=== PATIENT | male | born 1970 ===

== ENCOUNTER 2017-11-13 11:47 | Emergency (ER) | payer OTHER ==
[2017-11-13 11:59] VITALS: RESP 16; TEMP 98
[2017-11-13] MEDS ORDERED: Tdap Vaccine 0.5 ml Vial (10-64 yrs) IM ONE (12:07)
[2017-11-13] MEDS ORDERED: Lidocaine 1% Inj (20ml) INFIL ONE (12:07)
[2017-11-13] MEDS ORDERED: Lidocaine Hydrochloride 5 ML INJ ONE (12:14)
[2017-11-13] MEDS ORDERED: Tetanus/Diphtheria Toxoids 0.5 ml Syringe IM ONE (12:14)
[2017-11-13] MEDS ORDERED: Bacitracin 500 Units/gm Oint Foilpak UD TOP ONE (12:17)
--- NOTE | 2017-11-13 12:17 | C.PDOC ---
History Of Present Illness 47 y/o male comes to ed s/p accident at work; pt was lifting a heavy metal pipe and accidentally hit himself in the face with it, causing a laceration to his right upper lip, right lower lip and abrasion to right thigh. pt fell down and landed on right hand, c/o pain to hypothenar and thenar eminences and to thumb and 5th finger of right hand. denies head injury, no loc, no neck pain. denies any loose teeth. tdap not utd. Time Seen by Provider: 11/13/17 12:01 Chief Complaint (Nursing): Abnormal Skin Integrity History Per: Patient History/Exam Limitations: no limitations Onset/Duration Of Symptoms: Hrs (1) Current Symptoms Are (Timing): Still Present Location Of Injury: Right: Face (lacerations), Hand (painful), Thigh (abrasion) Quality Of Symptoms: Painful Severity: Moderate Past Medical History Reviewed: Historical Data, Nursing Documentation, Vital Signs Vital Signs: Last Vital Signs Temp 98 F 11/13/17 11:56 Pulse 88 11/13/17 13:46 Resp 16 11/13/17 13:46 BP 154/94 H 11/13/17 13:46 Pulse Ox 99 11/15/17 11:02 - Medical History PMH: No Chronic Diseases Family History: States: Unknown Family Hx - Social History Hx Alcohol Use: No Hx Substance Use: No - Immunization History Hx Tetanus Toxoid Vaccination: No Hx Influenza Vaccination: No Hx Pneumococcal Vaccination: No Review Of Systems Constitutional: Negative for: Fever Eyes: Negative for: Pain, Vision Change ENT: Positive for: Mouth Pain (laceration to lips), Mouth Swelling Skin: Positive for: Other (lacerations and abrasion) Neurological: Negative for: Weakness, Numbness Physical Exam - Physical Exam Appears: Non-toxic, No Acute Distress, Other (uncomfortable) Skin: Warm, Dry, Other (2 cm deep vertical laceration to right side upper lip extending through raymond border, 1 cm irregular laceration to right lower lip. 5 cm shallow abrasion to right anterior mid thigh. ) Head: Normacephalic, Laceration (see skin) Eye(s): bilateral: Normal Inspection, PERRL, EOMI Nose: No Epistaxis, No Tenderness Oral Mucosa: Moist Tongue: Normal Appearing Lips: Laceration (right lower and right upper lip) Teeth: Normal Dentition, No Tender To Palpation, No Loose, No Avulsed Gingiva: Normal Appearing Neck: No Midline Cervical Tenderness Chest: No Deformity, No Tenderness Cardiovascular: Rhythm Regular Respiratory: No Decreased Breath Sounds Gastrointestinal/Abdominal: Bowel Sounds, Soft, No Tenderness Back: No Vertebral Tenderness Extremity: Normal ROM, Tenderness (right hand to thenar and hypothenar eminences and to thumb and pinky, skin intact, from all digits, wrist, elbow and shoulder. ) Extremity: Right: Bony Point Tenderness (thumb and 5th fingers) Pulses: Left Radial: Normal, Right Radial: Normal Neurological/Psych: Oriented x3, Normal Speech, Normal Cognition, Normal Motor, Normal Sensation ED Course And Treatment O2 Sat by Pulse Oximetry: 99 - Other Rad right hand X-Ray: Read By Radiologist Interpretation: Normal right hand radiographs. Laceration - Laceration Repair upper lip Wound Length (In cm): 2 Description Of Wound: Linear Wound Cleansed With: Sterile Saline Anesthesia: Lidocaine 1% Wound Examination: Irrigated With Saline Wound Closure: Suture (#7) Suture Technique And Material Used: Interrupted, Nylon (#6 ethilon) Wound Complexity: Simple Medical Decision Making Medical Decision Making: lower lip laceration right side 1 cm, 3 sutures with 5-0 absorbable gut. anesthetized with 1% lidocaine, irrigated ns. Disposition Counseled Patient/Family Regarding: Studies Performed, Diagnosis, Need For Followup, Rx Given - Disposition Referrals: [facility] [Outside] Disposition: HOME/ ROUTINE Disposition Time: 13:35 Condition: IMPROVED Additional Instructions: Por favor, aplique compresas fras (sobre chelly liviana) al labio superior por 10 min a la vez, varias veces al da para ayudar con la hinchazn. Riddle antibi ticos segn lo prescrito. Tylenol o Motrin para el dolor. Regrese a ER en 2 d as para un control de herida. Por favor, coma alimentos blandos y enjuguese la boca con agua tibia despus de comer para quitar las partculas de alimentos de las laceraciones. Regrese a ER para cualquier sntoma que empeore. Eliminacin de sutura en 7 sanchez. Please apply cold compress (over light cloth) to upper lip for 10 min at a time , several times a day to help with swelling. Take antibiotics as prescribed. Tylenol or Motrin for pain. Return to ER in 2 days for a wound check. Please eat soft foods and rinse mouth with warm water after eating to get any food particles away from lacerations. Return to ER for any worsening symptms. Suture removal in 7 days. Prescriptions: Cephalexin [cephalexin] 500 mg PO Q6 #28 cap Ibuprofen [Motrin] 600 mg PO TID #30 tab Instructions: Contusion (DC), Laceration Repair With Stitches (DC) Forms: Gen Discharge Inst Mosotho, [facility] (Mosotho) Print Language: KISWAHILI - Clinical Impression Clinical Impression: Laceration of lip, Abrasion, Hand injury
[2017-11-13] MEDS ORDERED: Bacitracin 500 Units/gm Oint Foilpak UD ONE (12:23)
--- NOTE | 2017-11-13 12:50 | RAD ---
PROCEDURE: Right Hand Radiographs. HISTORY: fell on hand pain to thumb and pinky COMPARISON: None. FINDINGS: BONES: Normal. No fracture. JOINTS: Normal. No osteoarthritic changes. SOFT TISSUES: Normal. OTHER FINDINGS: None. IMPRESSION: Normal right hand radiographs.
[2017-11-13 13:46] VITALS: BP 154/94; PULSE 88
[2017-11-15 10:46] VITALS: O2SAT 99
== END 2017-11-13 13:50 | disposition home or self-care (01) ==
LOC: C.ER 11:47
DX: S01.511A Laceration without foreign body of lip, initial encounter (principal); S70.311A Abrasion, right thigh, initial encounter; S69.91XA Unspecified injury of right wrist, hand and finger(s), initial encounter; W22.8XXA Striking against or struck by other objects, initial encounter; Y92.89 Other specified places as the place of occurrence of the external cause; Y99.0 Civilian activity done for income or pay

== ENCOUNTER 2017-11-15 13:30 | Emergency (ER) | payer OTHER ==
[2017-11-15 13:42] VITALS: BP 128/88; PULSE 68; RESP 18; TEMP 99; O2SAT 98
--- NOTE | 2017-11-15 14:07 | C.PDOC ---
History Of Present Illness 47 y/o male presents to the ED s/p wound check. Patient was seen here at this ED 2 days ago for laceration repair. He was instructed to return for a follow- up prompting his visit the ER today. He reports a wound check for his lip laceration and right hand injury. PMD: none provided Time Seen by Provider: 11/15/17 13:45 Chief Complaint (Nursing): Wound Check History Per: Patient History/Exam Limitations: no limitations Onset/Duration Of Symptoms: Days Ago (x2) Current Symptoms Are (Timing): Better Location Of Injury: Right: Hand, Mouth Recent travel outside of the [place]: No Past Medical History Reviewed: Historical Data, Nursing Documentation, Vital Signs Vital Signs: Last Vital Signs Temp 99.0 F 11/15/17 13:39 Pulse 68 11/15/17 13:39 Resp 18 11/15/17 13:39 BP 128/88 11/15/17 13:39 Pulse Ox 98 11/15/17 15:17 - Medical History PMH: No Chronic Diseases Surgical History: Appendectomy Family History: States: Unknown Family Hx - Social History Hx Tobacco Use: No Hx Alcohol Use: No Hx Substance Use: No - Immunization History Hx Tetanus Toxoid Vaccination: Yes (vaccinated November 13 2017) Hx Influenza Vaccination: No Hx Pneumococcal Vaccination: No Review Of Systems Except As Marked, All Systems Reviewed And Found Negative. Musculoskeletal: Positive for: Hand Pain (wound check to right hand) Skin: Positive for: Other (wound check to the right side of the upper lip) Physical Exam - Physical Exam Appears: Non-toxic, No Acute Distress Skin: Normal Color, Warm, Dry Head: Atraumatic Eye(s): bilateral: Normal Inspection Lips: Other (laceration right side of upper lip, sutures intact, no signs of infection) Extremity: Other (patient requesting re-check of right hand, showed ecchymosis of dorsum and palmar surface of right hand with full ROM, reapplied liliane wrap) Neurological/Psych: Oriented x3 ED Course And Treatment O2 Sat by Pulse Oximetry: 98 (RA) Pulse Ox Interpretation: Normal Medical Decision Making Medical Decision Making: Time: 13:39 Plan: * wound check to lip laceration * wound check to right hand injury Scribe Attestation: Documented by Padmini Merritt acting as a scribe for Kiah Griffith PA-C. MD Scribe Attestation: All medical record entries made by the Scribe were at my direction and personally dictated by me. I have reviewed the chart and agree that the record accurately reflects my personal performance of the history, physical exam, medical decision making, and the department course for this patient. I have also personally directed, reviewed, and agree with the discharge instructions and disposition. Disposition - Disposition Disposition: HOME/ ROUTINE Disposition Time: 14:02 Condition: STABLE Additional Instructions: Follow up with your PMD within 1-2 days. Return to ED if feel worse. Instructions: Wound Care (DC) Forms: [employer] (Estonian) Print Language: ARMENIAN - Clinical Impression Clinical Impression: Visit for wound check
== END 2017-11-15 14:33 | disposition home or self-care (01) ==
LOC: C.ER 13:30
DX: S01.511D Laceration without foreign body of lip, subsequent encounter (principal)

== ENCOUNTER 2017-11-20 08:21 | Emergency (ER) | payer OTHER ==
[2017-11-20 08:28] VITALS: BP 158/98; PULSE 66; RESP 20; TEMP 98.3; O2SAT 97
--- NOTE | 2017-11-20 08:37 | C.PDOC ---
History Of Present Illness 47 y/o male presents to ED for suture removal from right upper lip after repair 1 week ago after incident at work. Patient notes some persistent pain to right hand though notes progressive improvement. Patient denies discharge, new injury , change in sensation or any other complaints at this time. Time Seen by Provider: 11/20/17 08:22 Chief Complaint (Nursing): Suture/Staple Removal History Per: Patient History/Exam Limitations: no limitations Onset/Duration Of Symptoms: Days Ago Current Symptoms Are (Timing): Better Past Medical History Reviewed: Historical Data, Nursing Documentation, Vital Signs Vital Signs: Last Vital Signs Temp 98.3 F 11/20/17 08:25 Pulse 66 11/20/17 08:25 Resp 20 11/20/17 08:25 BP 158/98 H 11/20/17 08:25 Pulse Ox 97 11/20/17 08:45 - Medical History PMH: No Chronic Diseases Surgical History: Appendectomy Family History: States: No Known Family Hx - Social History Hx Tobacco Use: No Hx Alcohol Use: No Hx Substance Use: No - Immunization History Hx Tetanus Toxoid Vaccination: Yes (vaccinated November 13 2017) Hx Influenza Vaccination: No Hx Pneumococcal Vaccination: No Review Of Systems Constitutional: Negative for: Fever, Chills Gastrointestinal: Negative for: Nausea, Vomiting Musculoskeletal: Positive for: Hand Pain Skin: Negative for: Rash Neurological: Negative for: Numbness Physical Exam - Physical Exam Appears: Non-toxic, No Acute Distress Skin: Warm, Dry, No Rash Head: Atraumatic, Normacephalic Eye(s): bilateral: Normal Inspection, EOMI Nose: Normal Oral Mucosa: Moist Lips: No Swelling, No Erythema, Other (sutures intact to right upper lip. No drainage, swelling or erythema) Neck: Normal ROM, Supple Chest: Symmetrical Respiratory: No Accessory Muscle Use Extremity: Normal ROM, Tenderness (mild tenderness to the 5th mcp), Capillary Refill (<2 sec), No Swelling Pulses: Left Radial: Normal, Right Radial: Normal Neurological/Psych: Oriented x3, Normal Speech, Normal Motor, Normal Sensation ED Course And Treatment O2 Sat by Pulse Oximetry: 97 (RA) Pulse Ox Interpretation: Normal Progress Note: Xray from previous visit reviewed: No fracture or dislocation of right hand noted. Sutures removed with no difficulty, Patient tolerated well. Pt offered repeat XR to evaluated for unseen fx , pt declined. Instructed to f.u to PMD in 1-2 days Disposition - Disposition Referrals: [facility] [Outside] Disposition: HOME/ ROUTINE Disposition Time: 08:38 Condition: STABLE Instructions: Stitches Removal Forms: [employer] (Rwandan) Print Language: SALVADOREAN - Clinical Impression Clinical Impression: Removal of suture - PA / [employer] TECHNICIAN / Resident Statement MD/DO has reviewed & agrees with the documentation as recorded. - Scribe Statement The provider has reviewed the documentation as recorded by the Scribmary Euceda All medical record entries made by the Tommieibmary were at my direction and personally dictated by me. I have reviewed the chart and agree that the record accurately reflects my personal performance of the history, physical exam, medical decision making, and the department course for this patient. I have also personally directed, reviewed, and agree with the discharge instructions and disposition.
== END 2017-11-20 08:43 | disposition home or self-care (01) ==
LOC: C.ER 08:21
DX: Z48.02 Encounter for removal of sutures (principal)